=== PATIENT | male | born 1960 ===

== ENCOUNTER 2017-06-25 08:48 | Day surgery (SDC) | payer OTHER ==
[~2017-06-25 08:48] MED LIST: LIDOCAINE MPF 2% - 5 ML (20 MG/1 ML) ONE; LIDOCAINE W/ SODIUM BICARB 0.5 ML SYR ONE; Lactated Ringers 1,000 ML PRIMARY IV ONE; MIDAZOLAM 5 MG/1 ML ONE; ROCURONIUM 10 MG/1 ML - 5 ML VIAL IVP ONE; ceFAZolin Inj 2gm (Premix) 50 ML IV ONE; fentaNYL Inj 250 MCG/5 ML VIAL ONE
[2017-06-25] MEDS ORDERED: BUPIVACAINE 0.5% W/ EPI - 10 ML VIAL ONE (09:46)
[2017-06-25] MEDS ORDERED: HYDROmorphone 2 MG/1 ML ONE (10:35)
[2017-06-25] MEDS ORDERED: ONDANSETRON 4 MG/2 ML VIAL ONE (10:46)
[2017-06-25] MEDS ORDERED: KETOROLAC 30 MG/1 ML VIAL ONE ×2 (10:46→11:45)
[2017-06-25] MEDS ORDERED: ROCURONIUM 10 MG/1 ML - 5 ML VIAL IVP ONE (10:48)
[2017-06-25] MEDS ORDERED: Lactated Ringers 1,000 ML PRIMARY IV ONE ×2 (10:57→12:26)
[2017-06-25] MEDS ORDERED: SUGAMMADEX SODIUM 200 MG/2 ML VIAL IV ONE (11:07)
[2017-06-25] MEDS ORDERED: ONDANSETRON 4 MG/2 ML VIAL IVP PRN (12:13)
[2017-06-25] MEDS ORDERED: MORPHINE SULFATE 2 MG/1 ML IVP PRN (12:13)
[2017-06-25] MEDS ORDERED: NORMAL SALINE 10 ML SYRINGE FLUSH IVP PRN ×2 (12:13→12:52)
[2017-06-25] MEDS ORDERED: oxyCODONE/APAP 7.5/325 Tab 1 TAB TAB PO PRN (12:13)
--- NOTE | 2017-06-25 12:13 | GEN.OPNOTE ---
Operative Note Surgery Date: 06/25/17 Preoperative Diagnosis: Incarcerated ventral hernia. Small umbilical hernia. Postoperative Diagnosis: Same. Procedure: reduction and repair incarcerated ventral hernia and umbilical hernia with Marlex mesh onlay. Surgeon: Jeancarlos Valdez MD Anesthesia Provider: Akhil Long CRNA Anesthesia Type: General Estimated Blood Loss (mL): 20 Fluids: 1800 mL of crystalloid. 2 g of IV Ancef at the start of the procedure. 30 mg of IV and 30 mg of IM Toradol at the end of the procedure. Pathology: Incarcerated omentum was sent to pathology. Indications: symptomatic and enlarging ventral hernia Findings: Incarcerated omentum. Thin fascia. Small umbilical hernia. Complications: None. Operative Summary: The patient was taken to the operating suite and placed on the operating table in a supine position. Following the induction of general anesthetic the abdomen was prepped and draped in a sterile fashion. A surgical timeout was done. A midline incision was made above the umbilicus. Electrocautery was used to transect the subcutaneous fat down to the hernia. The hernia was freed circumferentially down to the fascia. The defect was well above the umbilicus. It appeared the patient had diastases rectus. The fascial defect was enlarged. The umbilicus was detached from the fascia. There is a small umbilical hernia which was incorporated into the ventral hernia defect. The omentum which had been incarcerated was excised by serially clamping dividing and ligating it with 0 Vicryl sutures. The hernia sac was excised. The fascial edges were very thin. The fascia was trimmed back to adequate tissue. The fascia was closed in the midline with running #1 Prolene. The subcutaneous tissue was cleared off the fat anteriorly. There was some thinning of the fascia. An oval shaped piece of Marlex mesh was cut to fit over the repair. It overlapped the midline repair by at least three quarters of an inch in all directions. It was sewn in circumferentially with 2-0 Prolene. Several simple stitches were placed down the middle of the mesh to tack it down. The wound was irrigated. Hemostasis was assured. Final irrigation was 1/2% Marcaine with epinephrine which is allowed to sit in the wound for several minutes and then removed. The umbilicus was reattached with 2-0 Vicryl sutures The space was closed by tacking the subcutaneous fat to the mesh with 2-0 Vicryl. The skin was closed with surgical martha followed by an appropriate dressing. Patient tolerated the entire procedure well without complication. She was taken to outpatient surgery in stable condition. All counts were correct.
[2017-06-25] MEDS ORDERED: Lactated Ringers 1,000 ML PRIMARY IV SCH ×2 (12:15→13:00)
[2017-06-25] MEDS ORDERED: PROMETHAZINE 25 MG/1 ML VIAL IM PRN (12:52)
[2017-06-25] MEDS ORDERED: fentaNYL Inj 100 MCG/2 ML VIAL IVP PRN (12:52)
[2017-06-25] MEDS ORDERED: HYDROmorphone 2 MG/1 ML IVP PRN (12:52)
[2017-06-25] MEDS ORDERED: oxyCODONE/APAP 7.5/325 Tab 1 TAB TAB PO ONE (12:59)
[2017-06-25 14:24] VITALS: TEMP 97
[2017-06-25 15:38] VITALS: RESP 10
== END 2017-06-25 15:52 | disposition home or self-care (01) ==
LOC: SDSC 08:48
PROVIDERS: ATTEND Surgery
DX: K43.9 Ventral hernia without obstruction or gangrene (principal)
CPT/HCPCS: 49561; 49568; J0690; J1170; J1885; J2001; J2250; J2405; J2704; J3010; J7120